=== PATIENT | female | born 1975 ===

== ENCOUNTER 2024-04-16 05:05 | Day surgery (SDC) | payer OTHER ==
[2024-04-12 08:54] VITALS: BP 141/79
[~2024-04-16] VITALS: Ht 162.6 cm; Wt 81.6 kg
[2024-04-16] MEDS ORDERED: ONDANSETRON HCL 2 MG/ML VIAL IV ONE (14:30)
== END 2024-04-16 16:10 | disposition home or self-care (01) ==
LOC: CIR.AMB 05:05
PROVIDERS: ATTEND Obstetrics & Gynecology
DX: N84.0 Polyp of corpus uteri (principal); N93.8 Other specified abnormal uterine and vaginal bleeding